=== PATIENT | male | born 1935 | race Asian ===

== ENCOUNTER 2018-10-19 06:29 | Day surgery (SDC) | payer MEDICARE, OTHER ==
[~2018-10-19] VITALS: Ht 165.1 cm; Wt 71.2 kg
[~2018-10-19 06:29] MED LIST: ALDACTONE50 MG PO; ALLOPURINOL100 MG PO; ANT12.5 PO; INDOMETHACIN50 MG PO; METOPROLOL SUCC25 M1 PO; MONTELUKAST SOD10 M1 PO; PROAIR HFA0.09 MG/A1 INH; SYMBICORT1 AE2; XARELTO10 M1 PO
[2018-10-19 06:43] VITALS: BP 127/60
[2018-10-19 15:59] VITALS: BP 136/85
== END 2018-10-19 10:05 | disposition home or self-care (01) ==
LOC: DS 06:29 → OR 07:30 → GI 07:30 → DS 10:05
PROVIDERS: Internal Medicine
PROC: 0DBF8ZZ Excision of Right Large Intestine, Via Natural or Artificial Opening Endoscopic (ICD-10-PCS; principal; 2018-10-19 07:30)
DX: R19.5 Other fecal abnormalities (principal); K63.5 Polyp of colon; K57.30 Diverticulosis of large intestine without perforation or abscess without bleeding; I48.91 Unspecified atrial fibrillation; I10 Essential (primary) hypertension; Z79.01 Long term (current) use of anticoagulants
CPT/HCPCS: 45378; J1200; J1610; J2250; J2310; J3010; J3490